=== PATIENT | female | born 1950 | race Caucasian/White ===

== ENCOUNTER 2018-06-10 11:41 | Emergency (ER) | payer MEDICARE, BC ==
[2018-06-10] MEDS ORDERED: HUMULIN R 100 UNIT/ML VIAL SC ONE ×2 (11:42)
[2018-06-10 12:38] LABS: BASO % 0.5 % (0-6); EOS % 1.1 % (0-6); GRAN % 67.6 % (47-80); HEMATOCRIT 37.8 % (35.0-47.0); HEMOGLOBIN 12.4 gm/dl (11.6-16.0); LYMPH % 24.8 % (16-45); MEAN CELL VOLUME 79.9 fl (81-97); MEAN CORPUSCULAR HEMOGLOBIN 26.2 pg (27-33); MEAN CORPUSCULAR HGB CONC 32.8 g/dl (32-36); PLATELET COUNT 191 K/uL (130-400); RED BLOOD COUNT 4.73 M/uL (3.80-5.40); WHITE BLOOD COUNT W/O DIFF 3.7 K/uL (4.2-12.2)
[2018-06-10 12:44] LABS: ACETONE,SERUM NEGATIVE (NEGATIVE); BLOOD UREA NITROGEN 12 mg/dL (8-23); CREATININE 0.7 mg/dL (0.5-0.9); EST GLOMERULAR FILTRATION RATE > 60 mL/min
[2018-06-10 12:45] LABS: TOTAL PROTEIN 5.8 g/dL (6.6-8.7)
[2018-06-10 12:47] LABS: GLUCOSE,RANDOM 439 mg/dL (74-109)
[2018-06-10 12:50] LABS: ALB/GLOB RATIO 1.8 (1.1-1.8); ALBUMIN 3.7 g/dL (4.0-5.0); ALKALINE PHOSPHATASE 118 U/L (35-104); ALT/SGPT 12 U/L (<33); AST/SGOT 11 U/L (10.0-35.0)
[2018-06-10] MEDS ORDERED: HUMULIN R 100 UNIT/ML VIAL SQ ONE ×2 (12:59→14:54)
[2018-06-10] MEDS ORDERED: IBUPROFEN 400 MG TABLET PO ONE (13:07)
[2018-06-10] MEDS ORDERED: 0.9 % SODIUM CHLORIDE 1,000 ML BAG IV ONE (13:47)
--- NOTE | 2018-06-10 15:54 | Emergency Department Record ---
History of Present Illness - General Chief complaint: Hypergylcemia Stated complaint: HIGH BLOOD SUGAR/DIZZY Time Seen by Provider: 06/10/18 12:04 Source: Patient Mode of Arrival: Wheelchair Limitations: No limitations - History of Present Illness Initial comments: pt has been having dizzy spells intermittently for 2 months and then today had a blood sugar over 500. her states she has been near falling Onset/Timin -: Month(s) Consistency: Intermittent Improves with: None Worsens with: None Associated Symptoms: Denies other symptoms - [place] Coma Scale Eye Response: (4) Open spontaneously Motor Response: (6) Obeys commands Verbal Response: (5) Oriented [place] Total: 15 - Related Data Home Medications Medication Instructions Recorded Confirmed Last Taken Ascorbic Acid [Vitamin C] 500 mg PO DAILY 06/10/18 06/10/18 Unknown Raloxifene HCl [Evista] 60 mg PO DAILY 06/10/18 06/10/18 Unknown Sertraline HCl [Zoloft] 50 mg PO DAILY 06/10/18 06/10/18 Unknown Allergies Allergy/AdvReac Type Severity Reaction Status Date / Time No Known Allergies Allergy Unverified 06/28/15 14:35 Travel Screening - Travel/Exposure Within Last 30 Days Have you traveled within the last 30 days?: No Review of Systems Reviewed: No additional complaints except as noted below Constitutional: Reports: As per HPI. Denies: Chills, Fever, Malaise, Night sweats, Weakness, Weight change Eyes: Reports: As per HPI. Denies: Eye discharge, Eye pain, Photophobia, Vision change ENT: Reports: As per HPI. Denies: Congestion, Dental pain, Ear pain, Epistaxis , Hearing loss, Throat pain Respiratory: Reports: As per HPI. Denies: Cough, Dyspnea, Hemoptysis, Stridor, Wheezes Cardiovascular: Reports: As per HPI. Denies: Arrhythmia, Chest pain, Dyspnea on exertion, Edema, Murmurs, Orthopnea, Palpitations, Paroxysmal nocturnal dyspnea, Rheumatic Fever, Syncope Endocrine: Reports: As per HPI. Denies: Fatigue, Heat or cold intolerance, Polydipsia, Polyuria Gastrointestinal: Reports: As per HPI. Denies: Abdominal pain, Constipation, Diarrhea, Hematemesis, Hematochezia, Melena, Nausea, Vomiting Genitourinary: Reports: As per HPI. Denies: Abnormal menses, Discharge, Dyspareunia, Dysuria, Frequency, Hematuria, Incontinence, Retention, Urgency Musculoskeletal: Reports: As per HPI. Denies: Arthralgia, Back pain, Gout, Joint swelling, Myalgia, Neck pain Skin: Reports: As per HPI. Denies: Bruising, Change in color, Change in hair/ nails, Lesions, Pruritus, Rash Neurological: Reports: As per HPI. Denies: Abnormal gait, Confusion, Headache, Numbness, Paresthesias, Seizure, Tingling, Tremors, Vertigo, Weakness Psychiatric: Reports: As per HPI. Denies: Anxiety, Auditory hallucinations, Depression, Homicidal thoughts, Suicidal thoughts, Visual hallucinations Hematological/Lymphatic: Reports: As per HPI. Denies: Anemia, Blood Clots, Easy bleeding, Easy bruising, Swollen glands Past Medical History - SOCIAL HISTORY Smoking Status: Never smoker Alcohol Use: None Drug Use: None - RESPIRATORY Hx Respiratory Disorders: Yes Hx Pneumonia: Yes (1.5 months (doing well)) - CARDIOVASCULAR Hx Cardio Disorders: Yes Hx Hypertension: Yes - NEURO Hx Neuro Disorders: No - GI Hx GI Disorders: Yes Hx of Polyps: Yes - Hx Genitourinary Disorders: No - ENDOCRINE Hx Endocrine Disorders: Yes Hx Diabetes: Yes (type 2) Hx Thyroid Disease: No - MUSCULOSKELETAL Hx Musculoskeletal Disorders: No - PSYCH Hx Psych Problems: Yes Hx Anxiety: Yes Hx Depression: Yes - HEMATOLOGY/ONCOLOGY Hx Hematology/Oncology Disorders: Yes Hx Blood Transfusions: Yes (r/t anemia ) Hx Blood Transfusion Reaction: No Family Medical History Any Significant Family History?: Yes Hx Cancer: Brother/Sister *Cancer Comment: bone, leukemia Hx Dementia: Brother/Sister Hx Depression: Children Hx Diabetes: Brother/Sister Hx Heart Disease: Brother/Sister Physical Exam - General General Appearance: Alert, Oriented x3, Cooperative, Mild distress - Head Head exam: Normal inspection - Eye Eye exam: Normal appearance, PERRL, EOMI Pupils: Normal accommodation - ENT ENT exam: Normal exam, Mucous membranes moist, Normal external ear exam, Normal orophraynx Ear exam: Normal external inspection. negative: External canal tenderness Nasal Exam: Normal inspection. negative: Discharge, Sinus tenderness Mouth exam: Normal external inspection, Tongue normal Teeth exam: Normal inspection. negative: Dental caries Throat exam: Normal inspection. negative: Tonsillar erythema, Tonsillar exudate - Neck Neck exam: Normal inspection, Full ROM. negative: Tenderness - Respiratory Respiratory exam: Normal lung sounds bilaterally. negative: Respiratory distress - Cardiovascular Cardiovascular Exam: Normal rhythm, Normal heart sounds, Bradycardia - GI/Abdominal GI/Abdominal exam: Soft, Normal bowel sounds. negative: Tenderness - Rectal Rectal exam: Deferred - exam: Deferred - Extremities Extremities exam: Normal inspection, Full ROM, Normal capillary refill. negative: Tenderness - Back Back exam: Reports: Normal inspection, Full ROM. Denies: Muscle spasm, Rash noted, Tenderness - Neurological Neurological exam: Alert, CN II-XII intact, Normal gait, Oriented X3 - Psychiatric Psychiatric exam: Normal affect, Normal mood - Skin Skin exam: Dry, Intact, Normal color, Warm Course Vital Signs 06/10/18 06/10/18 06/10/18 12:08 12:09 15:23 Temperature 98.1 F Pulse Rate [ 58 L 51 L Bandage Maker ] Respiratory 20 Rate Blood Pressure 169/83 151/78 [Left Arm] Pulse Ox 96 - Reevaluation(s) Reevaluation #1: 06/10/18 16:01 pt was consistently bradycardic, perhaps the etiology of her dizziness. d/w dr azul Medical Decision Making - Lab Data Result diagrams: 06/10/18 12:25 06/10/18 12:25 Lab Results 06/10/18 06/10/18 06/10/18 Range/Units 12:08 12:25 12:25 WBC 3.7 L (4.2-12.2) K/uL RBC 4.73 (3.80-5.40) M/uL Hgb 12.4 (11.6-16.0) gm/dl Hct 37.8 (35.0-47.0) % MCV 79.9 L (81-97) fl MCH 26.2 L (27-33) pg MCHC 32.8 (32-36) g/dl RDW 13.0 (11.5-14.5) % Plt Count 191 (130-400) K/uL MPV 9.0 (7.4-10.4) fl Gran % 67.6 (47-80) % Lymphocytes % 24.8 (16-45) % Monocytes % 6.0 (0-9) % Eosinophils % 1.1 (0-6) % Basophils % 0.5 (0-6) % VBG pH 7.39 (7.33-7.43) Sodium 136 (136-145) mmol/L Potassium 4.2 (3.4-4.5) mmol/L Chloride 99 (98-107) mmol/L Carbon Dioxide 26.0 (22-29) mmol/L Anion Gap 11.0 (7-16) BUN 12 (8-23) mg/dL Creatinine 0.7 (0.5-0.9) mg/dL Estimated GFR > 60 mL/min POC Glucose 399 H (70-110) mg/dL Random Glucose 439 H (74-109) mg/dL Calcium 8.8 (8.8-10.2) mg/dL Total Bilirubin 0.40 (0.2-1.0) mg/dL AST 11 (10.0-35.0) U/L ALT 12 (<33) U/L Alkaline Phosphatase 118 H (35-104) U/L Troponin T < 0.010 (0-0.010) ng/mL Total Protein 5.8 L (6.6-8.7) g/dL Albumin 3.7 L (4.0-5.0) g/dL Globulin 2.1 (1.4-4.8) gm/dL Albumin/Globulin Ratio 1.8 (1.1-1.8) Acetone, Qual Negative (NEGATIVE) 06/10/18 Range/Units 14:48 WBC (4.2-12.2) K/uL RBC (3.80-5.40) M/uL Hgb (11.6-16.0) gm/dl Hct (35.0-47.0) % MCV (81-97) fl MCH (27-33) pg MCHC (32-36) g/dl RDW (11.5-14.5) % Plt Count (130-400) K/uL MPV (7.4-10.4) fl Gran % (47-80) % Lymphocytes % (16-45) % Monocytes % (0-9) % Eosinophils % (0-6) % Basophils % (0-6) % VBG pH (7.33-7.43) Sodium (136-145) mmol/L Potassium (3.4-4.5) mmol/L Chloride (98-107) mmol/L Carbon Dioxide (22-29) mmol/L Anion Gap (7-16) BUN (8-23) mg/dL Creatinine (0.5-0.9) mg/dL Estimated GFR mL/min POC Glucose 329 H (70-110) mg/dL Random Glucose (74-109) mg/dL Calcium (8.8-10.2) mg/dL Total Bilirubin (0.2-1.0) mg/dL AST (10.0-35.0) U/L ALT (<33) U/L Alkaline Phosphatase (35-104) U/L Troponin T (0-0.010) ng/mL Total Protein (6.6-8.7) g/dL Albumin (4.0-5.0) g/dL Globulin (1.4-4.8) gm/dL Albumin/Globulin Ratio (1.1-1.8) Acetone, Qual (NEGATIVE) Disposition Disposition: Transfer Clinical Impression: Bradycardia, Hyperglycemia, Dizziness Disposition: Acute Care Hospital Transfer Transfer To: [facility] Reason For Transfer: needs cardiology Accepting Physician: regine azul Time Discussed w/Accepting Physician: 16:01 Forms: Patient Portal Access Quality - Quality Measures Quality Measures: N/A - Blood Pressure Screening Does Patient Have Any of the Following: Active Dx of HTN Blood Pressure Classification: Hypertensive Reading Systolic Measurement: 151 Diastolic Measurement: 78 Screening for High Blood Pressure: Patient Exclusion, Hx of HTN [G9744]
--- NOTE | 2018-06-11 15:45 | CT SCAN REPORT ---
DATE: 06/09/2018. EXAM: CT OF THE BRAIN WITHOUT CONTRAST. HISTORY: Vertigo. TECHNIQUE: Sequential axial images were obtained from the foramen magna to the vertex without contrast administration. FINDINGS: The brain volume is normal. There is no large territorial infarct, hemorrhage, mass effect, or midline shift. No extra-axial fluid collection. The orbits, paranasal sinuses, and mastoid air cells are normal. IMPRESSION: NO ACUTE INTRACRANIAL ABNORMALITY IS APPRECIATED. Job Number: [id number] [facility]
== END 2018-06-10 16:45 | disposition short-term general hospital (02) ==
LOC: ER 11:41
DX: R00.1 Bradycardia, unspecified (principal); E11.65 Type 2 diabetes mellitus with hyperglycemia; R42 Dizziness and giddiness; I10 Essential (primary) hypertension; Z79.84 Long term (current) use of oral hypoglycemic drugs
CPT/HCPCS: 99284 ×2; 96372; 82800; 85025; 80053; 36416; 82009; 82948; 84484; 70450; 93005; 93010; J1815; J7030

== ENCOUNTER 2018-06-20 06:58 | Emergency (ER) | payer MEDICARE, BC ==
[2018-06-20] MEDS ORDERED: 0.9 % SODIUM CHLORIDE 1,000 ML BAG IV ONE (07:20)
[2018-06-20 07:34] LABS: BASO % 0.9 % (0-6); EOS % 1.5 % (0-6); HEMATOCRIT 38.6 % (35.0-47.0); HEMOGLOBIN 12.4 gm/dl (11.6-16.0); LYMPH % 30.8 % (16-45); MEAN CELL VOLUME 80.6 fl (81-97); MEAN CORPUSCULAR HEMOGLOBIN 25.9 pg (27-33); MEAN CORPUSCULAR HGB CONC 32.1 g/dl (32-36); MEAN PLATELET VOLUME 8.9 fl (7.4-10.4); MONO % 6.8 % (0-9); PLATELET COUNT 179 K/uL (130-400); RED BLOOD COUNT 4.79 M/uL (3.80-5.40); RED CELL DISTRIBUTION WIDTH 13.1 % (11.5-14.5); WHITE BLOOD COUNT W/O DIFF 3.4 K/uL (4.2-12.2)
[2018-06-20 07:48] LABS: BLOOD UREA NITROGEN 13 mg/dL (8-23); CREATININE 0.6 mg/dL (0.5-0.9); EST GLOMERULAR FILTRATION RATE > 60 mL/min
[2018-06-20 07:51] LABS: GLUCOSE,RANDOM 332 mg/dL (74-109)
[2018-06-20] MEDS ORDERED: HUMULIN R 100 UNIT/ML VIAL SQ ONE (07:53)
--- NOTE | 2018-06-20 07:58 | Emergency Department Record ---
History of Present Illness - General Chief complaint: Hypergylcemia Stated complaint: HIGH BLOOD SUGAR Time Seen by Provider: 06/20/18 07:08 Source: Patient, Family Mode of Arrival: Ambulatory Limitations: No limitations - History of Present Illness Initial comments: pt has hi bs this am. pt recently transferred to [facility] for bradycardia. pt was d/c w event monitor. pt refused to wear it. pt has memory issues and is a poor historian. answers questions MD Complaint: Lack of energy Onset/Timin -: Hour(s) Associated Symptoms: Other - [place] Coma Scale Eye Response: (4) Open spontaneously Motor Response: (6) Obeys commands Verbal Response: (5) Oriented [place] Total: 15 - Related Data Allergies Allergy/AdvReac Type Severity Reaction Status Date / Time No Known Allergies Allergy none Verified 06/20/18 07:16 Travel Screening - Travel/Exposure Within Last 30 Days Have you traveled within the last 30 days?: No - Travel/Exposure Within Last Year Have you traveled outside the [place] in the last year?: Yes Location Detail:: [place] - Additonal Travel Details Have you been exposed to anyone with a communicable illness?: No - Travel Symptoms Symptom Screening: None Review of Systems Reviewed: No additional complaints except as noted below Constitutional: Reports: As per HPI. Denies: Chills, Fever, Malaise, Night sweats, Weakness, Weight change Eyes: Reports: As per HPI. Denies: Eye discharge, Eye pain, Photophobia, Vision change ENT: Reports: As per HPI. Denies: Congestion, Dental pain, Ear pain, Epistaxis , Hearing loss, Throat pain Respiratory: Reports: As per HPI. Denies: Cough, Dyspnea, Hemoptysis, Stridor, Wheezes Cardiovascular: Reports: As per HPI. Denies: Arrhythmia, Chest pain, Dyspnea on exertion, Edema, Murmurs, Orthopnea, Palpitations, Paroxysmal nocturnal dyspnea, Rheumatic Fever, Syncope Endocrine: Reports: As per HPI. Denies: Fatigue, Heat or cold intolerance, Polydipsia, Polyuria Gastrointestinal: Reports: As per HPI. Denies: Abdominal pain, Constipation, Diarrhea, Hematemesis, Hematochezia, Melena, Nausea, Vomiting Genitourinary: Reports: As per HPI. Denies: Abnormal menses, Discharge, Dyspareunia, Dysuria, Frequency, Hematuria, Incontinence, Retention, Urgency Musculoskeletal: Reports: As per HPI. Denies: Arthralgia, Back pain, Gout, Joint swelling, Myalgia, Neck pain Skin: Reports: As per HPI. Denies: Bruising, Change in color, Change in hair/ nails, Lesions, Pruritus, Rash Neurological: Reports: As per HPI. Denies: Abnormal gait, Confusion, Headache, Numbness, Paresthesias, Seizure, Tingling, Tremors, Vertigo, Weakness Psychiatric: Reports: As per HPI. Denies: Anxiety, Auditory hallucinations, Depression, Homicidal thoughts, Suicidal thoughts, Visual hallucinations Hematological/Lymphatic: Reports: As per HPI. Denies: Anemia, Blood Clots, Easy bleeding, Easy bruising, Swollen glands Past Medical History - SOCIAL HISTORY Smoking Status: Never smoker Alcohol Use: None Drug Use: None - RESPIRATORY Hx Respiratory Disorders: Yes Hx Pneumonia: Yes (1.5 months (doing well)) - CARDIOVASCULAR Hx Cardio Disorders: Yes Hx Hypertension: Yes - NEURO Hx Neuro Disorders: No - GI Hx GI Disorders: Yes Hx of Polyps: Yes - Hx Genitourinary Disorders: No - ENDOCRINE Hx Endocrine Disorders: Yes Hx Diabetes: Yes (type 2) Hx Thyroid Disease: No - MUSCULOSKELETAL Hx Musculoskeletal Disorders: No - PSYCH Hx Psych Problems: Yes Hx Anxiety: Yes Hx Depression: Yes - HEMATOLOGY/ONCOLOGY Hx Hematology/Oncology Disorders: Yes Hx Blood Transfusions: Yes (r/t anemia ) Hx Blood Transfusion Reaction: No Family Medical History Any Significant Family History?: No Hx Cancer: Brother/Sister *Cancer Comment: bone, leukemia Hx Dementia: Brother/Sister Hx Depression: Children Hx Diabetes: Brother/Sister Hx Heart Disease: Brother/Sister Physical Exam - General General Appearance: Alert, Oriented x3, Cooperative, Mild distress - Head Head exam: Normal inspection - Eye Eye exam: Normal appearance, PERRL, EOMI Pupils: Normal accommodation - ENT ENT exam: Normal exam, Mucous membranes moist, Normal external ear exam, Normal orophraynx Ear exam: Normal external inspection. negative: External canal tenderness Nasal Exam: Normal inspection. negative: Discharge, Sinus tenderness Mouth exam: Normal external inspection, Tongue normal Teeth exam: Normal inspection. negative: Dental caries Throat exam: Normal inspection. negative: Tonsillar erythema, Tonsillar exudate - Neck Neck exam: Normal inspection, Full ROM. negative: Tenderness - Respiratory Respiratory exam: Normal lung sounds bilaterally. negative: Respiratory distress - Cardiovascular Cardiovascular Exam: Regular rate, Normal rhythm, Normal heart sounds - GI/Abdominal GI/Abdominal exam: Soft, Normal bowel sounds. negative: Tenderness - Rectal Rectal exam: Deferred - exam: Deferred - Extremities Extremities exam: Normal inspection, Full ROM, Normal capillary refill. negative: Tenderness - Back Back exam: Reports: Normal inspection, Full ROM. Denies: Muscle spasm, Rash noted, Tenderness - Neurological Neurological exam: Alert, CN II-XII intact, Normal gait, Oriented X3 - Psychiatric Psychiatric exam: Normal affect, Normal mood - Skin Skin exam: Dry, Intact, Normal color, Warm Course Vital Signs 06/20/18 07:03 Temperature 97.8 F Pulse Rate 63 Respiratory 18 Rate Blood Pressure 177/87 Pulse Ox 95 Medical Decision Making - Lab Data Result diagrams: 06/20/18 07:29 06/20/18 07:29 Lab Results 06/20/18 06/20/18 06/20/18 Range/Units 07:17 07:29 07:29 WBC 3.4 L (4.2-12.2) K/uL RBC 4.79 (3.80-5.40) M/uL Hgb 12.4 (11.6-16.0) gm/dl Hct 38.6 (35.0-47.0) % MCV 80.6 L (81-97) fl MCH 25.9 L (27-33) pg MCHC 32.1 (32-36) g/dl RDW 13.1 (11.5-14.5) % Plt Count 179 (130-400) K/uL MPV 8.9 (7.4-10.4) fl Gran % 60.0 (47-80) % Lymphocytes % 30.8 (16-45) % Monocytes % 6.8 (0-9) % Eosinophils % 1.5 (0-6) % Basophils % 0.9 (0-6) % Sodium 139 (136-145) mmol/L Potassium 3.7 (3.4-4.5) mmol/L Chloride 102 (98-107) mmol/L Carbon Dioxide 26.0 (22-29) mmol/L Anion Gap 11.0 (7-16) BUN 13 (8-23) mg/dL Creatinine 0.6 (0.5-0.9) mg/dL Estimated GFR > 60 mL/min POC Glucose 323 H (70-110) mg/dL Random Glucose 332 H (74-109) mg/dL Calcium 9.1 (8.8-10.2) mg/dL Disposition Disposition: Discharge Clinical Impression: Hyperglycemia due to type 2 diabetes mellitus Qualifiers: Diabetes mellitus residential insulin use: without traffic and transport planner use Qualified Code(s ): E11.65 - Type 2 diabetes mellitus with hyperglycemia Disposition: Home, Self-Care Condition: (1) Good Instructions: Diabetic Hyperglycemia (ED) Additional Instructions: follow up with family doctor tomorrow. return sooner if worse Forms: Patient Portal Access Quality - Quality Measures Quality Measures: N/A - Blood Pressure Screening Does Patient Have Any of the Following: No Blood Pressure Classification: Pre-Hypertensive BP Reading Systolic Measurement: 177 Diastolic Measurement: 87 Screening for High Blood Pressure: < Pre-Hypertensive BP, F/U Documented > [ G8950] Pre-Hypertensive Follow-up Interventions: Follow-up with rescreen every year.
== END 2018-06-20 08:46 | disposition home or self-care (01) ==
LOC: ER 06:58
DX: E11.65 Type 2 diabetes mellitus with hyperglycemia (principal); Z79.84 Long term (current) use of oral hypoglycemic drugs; R53.83 Other fatigue
CPT/HCPCS: 36416; 80048; 82948; 85025; 96372; 99284; J7030